=== PATIENT | female | born 1970 | race African-American/Black ===

== ENCOUNTER 2016-11-22 05:25 | Emergency (ER) | payer MEDICARE, OTHER ==
[~2016-11-22] VITALS: Ht 162.6 cm; Wt 72.7 kg
[~2016-11-22 05:25] MED LIST: ADV250 IH; ALBU8HFA4 IH; OMEP20 PO; QUET100T PO; RISP3 PO; VITAD1000 PO
[2016-11-22] MEDS ORDERED: TRIL4 PO (05:48)
[2016-11-22] MEDS ORDERED: MIRT15 PO (05:48)
[2016-11-22] MEDS ORDERED: CLON1 PO (05:48)
[2016-11-22] MEDS ORDERED: TRIH2TAB3 PO (05:48)
[2016-11-22 06:28] LABS: BASOPHILS % (AUTO) 0.1 % (0.0-2.0); EOSINOPHILS % (AUTO) 6.7 % (1.0-6.0); HEMATOCRIT 39.6 % (36-46); HEMOGLOBIN 12.5 g/dL (12.0-16.0); LYMPHOCYTES # (AUTO) 0.9 K/uL (1.0-4.8); LYMPHOCYTES % (AUTO) 13.4 % (22.0-44.0); MEAN CORPUSCULAR HGB CONC 31.7 G/dL (31.0-37.0); MEAN CORPUSCULAR VOLUME 88 fL (80-100); MONOCYTES # (AUTO) 0.3 K/uL (0.1-1.0); MONOCYTES % (AUTO) 3.8 % (2.0-9.0); NEUTROPHILS # (AUTO) 5.2 K/uL (1.8-7.7); PLATELET COUNT (AUTO) 345 K/uL (150-450); RED BLOOD CELL COUNT(AUTO) 4.49 MIL/uL (4.00-5.20); RED CELL DISTRIBUTION WIDTH 14.7 % (11.5-14.5); WHITE BLOOD COUNT (AUTO) 6.8 K/uL (4.5-11.0)
[2016-11-22 06:51] LABS: ANION GAP 8 mmol/L (8-16); CALCIUM, TOTAL 8.7 mg/dL (8.8-10.5); CARBON DIOXIDE 27 mmol/L (22-29); CHLORIDE 106 mmol/L (98-107); CREATININE 0.67 mg/dL (0.60-1.30); GLOMERULAR FILTR. RATE CALC > 60 mL/min (>60); POTASSIUM 3.8 mmol/L (3.5-5.1); SODIUM SERUM 141 mmol/L (136-145); UREA NITROGEN, BLOOD 4 mg/dL (7-18)
[2016-11-22 06:56] LABS: ALANINE AMINOTRANSFERASE 19 U/L (12-78); ALBUMIN 3.1 g/dL (3.4-5.0); ASPARTATE AMINOTRANSFERASE 15 U/L (15-37); BILIRUBIN,TOTAL 0.2 mg/dL (0.1-1.0); TOTAL PROTEIN, SERUM 7.2 g/dL (6.4-8.2)
[2016-11-22] MEDS ORDERED: HALOPERIDOL 5 MG TABLET PO ONE (09:00)
[2016-11-22] MEDS ORDERED: LORazepam 1 MG TABLET PO ONE (09:00)
[2016-11-22] MEDS ORDERED: DiphenhydrAMINE HCL 25 MG CAPSULE PO ONE (09:00)
[2016-11-22 09:47] VITALS: BP 98/63
== END 2016-11-22 10:23 | disposition home or self-care (01) ==
LOC: EMS 05:26
DX: F25.9 Schizoaffective disorder, unspecified (principal)
CPT/HCPCS: 36415; 80053; 80307; 85025; 99284; G0480

== ENCOUNTER 2018-03-10 21:57 | Emergency (ER) | payer MEDICARE, OTHER ==
[~2018-03-10] VITALS: Ht 165.1 cm; Wt 50.0 kg
[~2018-03-10 21:57] MED LIST changes: -ADV250 IH; -ALBU8HFA4 IH; +CLON1 PO; +MIRT15 PO; -OMEP20 PO; -QUET100T PO; -RISP3 PO; +TRIH2TAB3 PO; +TRIL4 PO; -VITAD1000 PO
[2018-03-10 22:31] VITALS: BP 108/71
[2018-03-10] MEDS ORDERED: SODIUM CHLORIDE 0.9% 1,000 ML IV ONE (23:00)
[2018-03-10 23:17] LABS: BASOPHILS % (AUTO) 2.5 % (0.0-2.0); EOSINOPHILS % (AUTO) 2.2 % (1.0-6.0); HEMATOCRIT 36.6 % (36-46); HEMOGLOBIN 12.5 g/dL (12.0-16.0); LYMPHOCYTES # (AUTO) 1.3 K/uL (1.0-4.8); LYMPHOCYTES % (AUTO) 27.5 % (22.0-44.0); MEAN CORPUSCULAR HEMOGLOBIN 30.5 pg (26.0-34.0); MEAN CORPUSCULAR HGB CONC 34.2 G/dL (31.0-37.0); MEAN CORPUSCULAR VOLUME 89 fL (80-100); MONOCYTES # (AUTO) 0.4 K/uL (0.1-1.0); MONOCYTES % (AUTO) 8.5 % (2.0-9.0); NEUTROPHILS # (AUTO) 2.8 K/uL (1.8-7.7); NEUTROPHILS % (AUTO) 59.3 % (40.0-70.0); PLATELET COUNT (AUTO) 281 K/uL (150-450); RED CELL DISTRIBUTION WIDTH 13.8 % (11.5-14.5)
[2018-03-10 23:31] LABS: ANION GAP 5 mmol/L (8-16); CALCIUM, TOTAL 8.6 mg/dL (8.8-10.5); CARBON DIOXIDE 28 mmol/L (22-29); CHLORIDE 107 mmol/L (98-107); CREATININE 0.74 mg/dL (0.60-1.30); GLOMERULAR FILTR. RATE CALC > 60 mL/min (>60); GLUCOSE,RANDOM 90 mg/dL (70-110); POTASSIUM 4.1 mmol/L (3.5-5.1); SODIUM SERUM 140 mmol/L (136-145); UREA NITROGEN, BLOOD 14 mg/dL (7-18)
[2018-03-10 23:37] LABS: ALANINE AMINOTRANSFERASE 31 U/L (12-78); ALBUMIN 3.3 g/dL (3.4-5.0); ALKALINE PHOSPHATASE 56 U/L (46-116); ASPARTATE AMINOTRANSFERASE 21 U/L (15-37); BILIRUBIN,TOTAL 0.3 mg/dL (0.1-1.0); TOTAL PROTEIN, SERUM 6.7 g/dL (6.4-8.2)
[2018-03-10 23:48] LABS: APPEARANCE,URINE CLOUDY (CLEAR); GLUCOSE, URINE (UA) NEGATIVE (NEGATIVE); KETONES,URINE TRACE mg/dL (NEGATIVE); LEUKOCYTE ESTERASE ,URINE NEGATIVE (NEGATIVE); NITRATE,URINE NEGATIVE (NEGATIVE); OCCULT BLOOD,URINE NEGATIVE (NEGATIVE); PH,URINE 5.5 (5.0-8.0); PROTEIN,URINE POS 1+ (NEGATIVE)
[2018-03-10 23:51] LABS: AMPHET/METH SCREEN,URINE NEGATIVE (NEGATIVE); BARBITURATE SCREEN, URINE NEGATIVE (NEGATIVE); BENZODIAZEPINES SCREEN,URINE NEGATIVE (NEGATIVE); BILIRUBIN,URINE PRELIM. POSITIVE (NEGATIVE); CANNABINOID SCREEN,URINE NEGATIVE (NEGATIVE); COCAINE SCREEN,URINE NEGATIVE (NEGATIVE); METHADONE SCREEN, URINE NEGATIVE (NEGATIVE); OPIATE SCREEN,URINE NEGATIVE (NEGATIVE); PHENCYCLIDINE SCREEN,URINE NEGATIVE (NEGATIVE)
== END 2018-03-11 00:50 | disposition home or self-care (01) ==
LOC: EMS 21:59
DX: R42 Dizziness and giddiness (principal); F20.9 Schizophrenia, unspecified; Z79.899 Other long term (current) drug therapy
CPT/HCPCS: 36415; 80053; 80307; 81003; 84484; 84703; 85025; 93005; 96360; 99285; J7030

== ENCOUNTER 2023-11-03 10:43 | Inpatient (IN) | payer MEDICARE, MEDICAID ==
[~2023-11-03] VITALS: Ht 157.5 cm; Wt 54.4 kg
[~2023-11-03 10:43] MED LIST changes: +CLON-595 PO; -CLON1 PO; +MIRT-89 PO; -MIRT15 PO; +PERP4TAB33 PO; -TRIL4 PO
[2023-11-03 20:06] VITALS: RESP 16
[2023-11-04] MEDS ORDERED: ACETAMINOPHEN 325 MG TABLET PO PRN (07:00)
[2023-11-04] MEDS ORDERED: MAG HYDROX/ALUMINUM HYD/SIMETH ES 30 ML SUSPENSION UDCUP PO PRN (07:00)
[2023-11-04] MEDS ORDERED: PETROLATUM,WHITE 28 GM JELLY TP PRN (07:00)
[2023-11-04] MEDS ORDERED: ALBUTEROL SULFATE HFA 90 MCG/PUFF 8 GM INHALER IH PRN (07:00)
[2023-11-04] MEDS ORDERED: ONDANSETRON HCL 4 MG TABLET PO PRN (07:00)
[2023-11-04] MEDS ORDERED: LOPERAMIDE HCL 2 MG CAPSULE PO PRN (07:00)
[2023-11-04] MEDS ORDERED: IBUPROFEN 400 MG TABLET PO PRN (07:00)
[2023-11-04] MEDS ORDERED: CloNIDine HCL 0.1 MG TABLET PO PRN (07:00)
[2023-11-04] MEDS ORDERED: DOCUSATE SODIUM 100 MG CAPSULE PO PRN (07:00)
[2023-11-04] MEDS ORDERED: GuaiFENesin/D-METHORPHAN [SUGAR-FREE] 200-20MG/10 ML SYRUP UDCUP PO PRN (07:00)
[2023-11-04] MEDS ORDERED: MAGNESIUM HYDROXIDE SUSPENSION 30 ML UDCUP PO PRN (07:00)
[2023-11-04] MEDS ORDERED: NICOTINE 14 MG/24 HOUR PATCH TD PRN (07:00)
[2023-11-04] MEDS ORDERED: PERPHENAZINE 4 MG TABLET PO SCH (09:30)
[2023-11-04] MEDS: TRIHEXYPHENIDYL HCL 2 MG TABLET PO SCH (09:30)
[2023-11-04] MEDS: PERPHENAZINE 8 MG TABLET PO SCH (09:35)
[2023-11-04 13:52] VITALS: BP 127/77; PULSE 80; TEMP 97.3; O2SAT 98
[2023-11-04] MEDS ORDERED: LORazepam 2 MG/ML VIAL ONE (16:42)
[2023-11-04] MEDS ORDERED: DiphenhydrAMINE HCL 50 MG/ML VIAL ONE (16:42)
[2023-11-04] MEDS: LORazepam 2 MG/ML VIAL IM ONE (16:52)
[2023-11-04] MEDS: DiphenhydrAMINE HCL 50 MG/ML VIAL IM ONE (16:52)
[2023-11-04] MEDS: HALOPERIDOL LACTATE 5 MG/ML VIAL IM ONE (16:52)
[2023-11-04 20:06] VITALS: BP 98/64; PULSE 72; RESP 16; TEMP 98.2; O2SAT 98
[2023-11-04] MEDS: MIRTAZAPINE 15 MG TABLET PO SCH (20:17)
[2023-11-05 11:05] VITALS: BP 103/63; PULSE 73; RESP 18; TEMP 96.4; O2SAT 92
[2023-11-05] MEDS: LORazepam 2 MG TABLET PO PRN (16:57)
[2023-11-05 20:17] VITALS: BP 115/75; PULSE 89; RESP 18; TEMP 97.9; O2SAT 98
[2023-11-06 08:07] VITALS: BP 116/75; PULSE 66; RESP 17; TEMP 97.2; O2SAT 97
[2023-11-06] MEDS: HALOPERIDOL 5 MG TABLET PO PRN (11:30)
[2023-11-06 20:16] VITALS: BP 101/61; PULSE 75; RESP 19; TEMP 97.1; O2SAT 98
[2023-11-07 08:00] VITALS: BP 103/68; PULSE 88; RESP 18; TEMP 98.2; O2SAT 96
[2023-11-07 20:22] VITALS: BP 108/63; PULSE 98; RESP 18; TEMP 98.2; O2SAT 97
[2023-11-07] MEDS: PERPHENAZINE 8 MG TABLET PO SCH (21:00)
[2023-11-08 08:10] VITALS: BP 107/66; PULSE 78; RESP 16; TEMP 98.2; O2SAT 97
[2023-11-08] MEDS: ZOLPIDEM TARTRATE 10 MG TABLET PO PRN (21:58)
[2023-11-08 22:34] VITALS: BP 114/73; PULSE 82; RESP 18; TEMP 97.9
[2023-11-09 08:19] VITALS: BP 102/61; PULSE 67; RESP 16; TEMP 96.8; O2SAT 99
[2023-11-09 20:07] VITALS: BP 112/56; PULSE 75; RESP 18; TEMP 98.6; O2SAT 98
[2023-11-10 08:27] VITALS: BP 102/60; PULSE 61; RESP 16; TEMP 97.9; O2SAT 97
[2023-11-10 20:23] VITALS: BP 100/67; PULSE 94; RESP 17; TEMP 98; O2SAT 98
[2023-11-11 08:15] VITALS: BP 117/72; PULSE 76; RESP 18; TEMP 98.9; O2SAT 97
[2023-11-11 08:23] LABS: APPEARANCE,URINE CLEAR (CLEAR); BILIRUBIN,URINE NEGATIVE (NEGATIVE); COLOR,URINE YELLOW (YELLOW); GLUCOSE, URINE (UA) NEGATIVE (NEGATIVE); KETONES,URINE NEGATIVE (NEGATIVE); LEUKOCYTE ESTERASE ,URINE NEGATIVE (NEGATIVE); NITRATE,URINE NEGATIVE (NEGATIVE); OCCULT BLOOD,URINE NEGATIVE (NEGATIVE); PH,URINE 8.5 (5.0-8.0); PROTEIN,URINE 30-70 mg/dL (NEGATIVE); SPECIFIC GRAVITIY, URINE 1.028 (1.003-1.030); UROBILINOGEN,URINE <=1.0 mg/dL (<=1.0)
[2023-11-11 08:47] LABS: PH,URINE DRUG SCREEN 7.5 (5.0-8.0)
[2023-11-11 08:57] LABS: ALCOHOL, URINE DRUG SCREEN NEGATIVE (NEGATIVE); AMPHET/METH SCREEN,URINE NEGATIVE (NEGATIVE); BARBITURATE SCREEN, URINE NEGATIVE (NEGATIVE); BENZODIAZEPINES SCREEN,URINE NEGATIVE (NEGATIVE); CANNABINOID SCREEN,URINE NEGATIVE (NEGATIVE); COCAINE SCREEN,URINE NEGATIVE (NEGATIVE); METHADONE SCREEN, URINE NEGATIVE (NEGATIVE); OPIATE SCREEN,URINE NEGATIVE (NEGATIVE); PHENCYCLIDINE SCREEN,URINE NEGATIVE (NEGATIVE)
[2023-11-11 20:10] VITALS: BP 108/58; PULSE 79; RESP 17; TEMP 97; O2SAT 100
[2023-11-12 08:32] VITALS: BP 103/60; PULSE 78; RESP 18; TEMP 97.8; O2SAT 99
[2023-11-12 20:08] VITALS: BP 100/60; PULSE 70; RESP 19; TEMP 98; O2SAT 98
[2023-11-13 08:35] VITALS: BP 109/63; PULSE 67; RESP 20; TEMP 96.9; O2SAT 100
[2023-11-13] MEDS ORDERED: PERPHENAZINE 4 MG TABLET PO SCH (13:00)
[2023-11-13] MEDS: PERPHENAZINE 8 MG TABLET PO SCH (13:26)
[2023-11-13 21:01] VITALS: BP 90/62; PULSE 71; RESP 20; TEMP 97.3
[2023-11-14 08:42] VITALS: BP 106/61; PULSE 78; RESP 16; TEMP 97.4; O2SAT 96
[2023-11-14] MEDS ORDERED: PERPHENAZINE 4 MG TABLET PO ONE (09:15)
[2023-11-14] MEDS: PERPHENAZINE 8 MG TABLET PO ONE (09:30)
[2023-11-14] MEDS: PERPHENAZINE 8 MG TABLET PO SCH (16:32)
[2023-11-14 20:10] VITALS: RESP 18
[2023-11-15 08:44] VITALS: BP 98/61; PULSE 74; RESP 16; TEMP 96.4; O2SAT 94
[2023-11-15 20:09] VITALS: BP 104/55; PULSE 68; RESP 19; TEMP 97.6; O2SAT 99
[2023-11-16 09:35] VITALS: BP 111/61; PULSE 75; RESP 16; TEMP 97; O2SAT 100
[2023-11-16 21:09] VITALS: BP 101/62; PULSE 61; RESP 16; TEMP 99.3; O2SAT 99
[2023-11-17 08:22] VITALS: BP 107/61; PULSE 90; RESP 16; TEMP 98.4; O2SAT 100
[2023-11-17 22:38] VITALS: BP 123/68; PULSE 91; RESP 18; TEMP 98; O2SAT 97
[2023-11-19 08:34] VITALS: BP 104/61; PULSE 111; RESP 16; TEMP 97.9; O2SAT 96
[2023-11-19 20:09] VITALS: BP 108/74; PULSE 95; RESP 19; TEMP 98.2; O2SAT 97
[2023-11-20 09:48] VITALS: BP 108/64; PULSE 85; RESP 20; TEMP 97.9; O2SAT 100
[2023-11-20 21:20] VITALS: RESP 18
[2023-11-21 08:35] VITALS: BP 101/70; PULSE 60; RESP 17; TEMP 98.3; O2SAT 96
[2023-11-21 20:35] VITALS: BP 101/60; PULSE 92; RESP 18; TEMP 97.2; O2SAT 99
[2023-11-22 08:26] VITALS: BP 110/65; PULSE 96; RESP 17; TEMP 97.9; O2SAT 97
[2023-11-22 20:29] VITALS: BP 105/66; PULSE 75; RESP 17; TEMP 96.8; O2SAT 97
[2023-11-23 08:28] VITALS: BP 113/68; PULSE 74; RESP 18; TEMP 96.7; O2SAT 96
[2023-11-23 22:49] VITALS: RESP 18
[2023-11-24 09:27] VITALS: BP 122/66; PULSE 102; RESP 16; TEMP 96.9; O2SAT 99
[2023-11-24 20:07] VITALS: BP 108/56; PULSE 85; RESP 19; TEMP 97.1; O2SAT 97
[2023-11-25 08:00] VITALS: RESP 18
[2023-11-25 21:06] VITALS: BP 117/62; PULSE 81; RESP 18; TEMP 97; O2SAT 98
[2023-11-26 08:07] VITALS: BP 116/60; PULSE 90; RESP 16; TEMP 98.1; O2SAT 98
[2023-11-26 23:50] VITALS: RESP 18
[2023-11-27 08:05] VITALS: BP 127/76; PULSE 85; RESP 16; TEMP 98.1; O2SAT 96
[2023-11-27 20:02] VITALS: BP 105/60; PULSE 76; RESP 16; TEMP 98.1; O2SAT 98
[2023-11-28 09:09] VITALS: BP 118/70; PULSE 88; RESP 17; TEMP 97.9; O2SAT 98
[2023-11-28 21:02] VITALS: BP 99/60; PULSE 87; RESP 18; TEMP 97.5; O2SAT 98
[2023-11-29 08:27] VITALS: BP 100/56; PULSE 72; RESP 16; TEMP 96.2; O2SAT 96
[2023-11-29 20:27] VITALS: BP 104/62; PULSE 81; RESP 18; TEMP 97.7; O2SAT 99
[2023-11-30 08:52] VITALS: BP 106/64; PULSE 93; RESP 16; TEMP 97.2; O2SAT 96
[2023-11-30] MEDS: PERPHENAZINE 8 MG TABLET PO SCH (17:18)
[2023-11-30 21:01] VITALS: RESP 18
[2023-12-01 08:38] VITALS: BP 98/60; PULSE 108; RESP 17; TEMP 97.6; O2SAT 97
[2023-12-01 20:04] VITALS: BP 100/65; PULSE 79; RESP 16; TEMP 98.1; O2SAT 97
[2023-12-01 23:54] VITALS: BP 98/60; PULSE 108; RESP 16; TEMP 97.6; O2SAT 97
[2023-12-02 08:51] VITALS: BP 109/70; PULSE 86; RESP 19; TEMP 97.6; O2SAT 99
[2023-12-02 20:05] VITALS: RESP 18
[2023-12-03 08:30] VITALS: BP 91/65; PULSE 82; RESP 18; TEMP 98.6; O2SAT 98
[2023-12-03 21:41] VITALS: BP 108/58; PULSE 83; RESP 16; TEMP 98; O2SAT 97
[2023-12-04 08:19] VITALS: BP 109/64; PULSE 81; RESP 16; TEMP 97.8; O2SAT 100
[2023-12-04 20:08] VITALS: BP 103/63; PULSE 89; RESP 18; TEMP 98.2; O2SAT 98
[2023-12-05 08:12] VITALS: BP 101/61; PULSE 85; RESP 17; TEMP 97.6; O2SAT 97
[2023-12-05 21:12] VITALS: BP 103/57; PULSE 83; RESP 18; TEMP 98.2; O2SAT 98
[2023-12-06 08:24] VITALS: BP 118/64; PULSE 91; RESP 16; TEMP 98.2; O2SAT 97
[2023-12-06 09:07] LABS: ANION GAP 6 mmol/L (8-16); CALCIUM, TOTAL 8.8 mg/dL (8.8-10.5); CARBON DIOXIDE 29 mmol/L (22-29); CHLORIDE 103 mmol/L (98-107); CREATININE 0.53 mg/dL (0.60-1.30); GLOMERULAR FILTR. RATE CALC > 60 mL/min (>60); GLUCOSE,RANDOM 128 mg/dL (70-110); POTASSIUM 4.1 mmol/L (3.5-5.1); SODIUM SERUM 138 mmol/L (136-145); UREA NITROGEN, BLOOD 14 mg/dL (7-18)
[2023-12-06 20:52] VITALS: BP 120/71; PULSE 86; RESP 18; TEMP 97.9; O2SAT 97
[2023-12-07 09:27] VITALS: BP 108/66; PULSE 81; RESP 16; TEMP 98.6; O2SAT 96
[2023-12-07 20:52] VITALS: BP 108/60; PULSE 99; RESP 17; TEMP 97.7; O2SAT 99
[2023-12-08 10:06] VITALS: BP 101/70; PULSE 85; RESP 17; TEMP 97.6; O2SAT 99
[2023-12-08 20:10] VITALS: BP 101/54; PULSE 80; RESP 18; TEMP 97.7; O2SAT 100
[2023-12-09 08:00] VITALS: BP 90/55; PULSE 85; RESP 18; TEMP 98.2; O2SAT 96
[2023-12-09] MEDS: TUBERCULIN, PURIFIED PROTEIN DERIVATIVE 5 TU/0.1 ML SYRINGE ID ONE ×2 (08:36→12:13)
[2023-12-09 20:05] VITALS: RESP 16
[2023-12-10 08:05] VITALS: RESP 16
[2023-12-10 20:06] VITALS: RESP 16
[2023-12-11 08:48] VITALS: BP 116/74; PULSE 87; RESP 18; TEMP 97.2
[2023-12-12 03:08] VITALS: RESP 17
[2023-12-12 14:06] VITALS: RESP 18
[2023-12-12 20:08] VITALS: BP 112/63; PULSE 98; RESP 18; TEMP 97.1; O2SAT 97
[2023-12-13 08:28] VITALS: BP 116/68; PULSE 94; RESP 17; TEMP 97.4; O2SAT 98
[2023-12-13 20:25] VITALS: BP 112/71; PULSE 80; RESP 18; TEMP 98.2; O2SAT 100
[2023-12-14 08:19] VITALS: BP 104/69; PULSE 68; RESP 19; TEMP 97.1; O2SAT 98
[2023-12-14 21:35] VITALS: BP 105/68; PULSE 89; RESP 16; TEMP 97.8; O2SAT 100
[2023-12-15 08:38] VITALS: BP 117/68; PULSE 81; RESP 17; TEMP 98.1; O2SAT 96
[2023-12-15 20:27] VITALS: BP 109/66; PULSE 68; RESP 16; TEMP 97.5; O2SAT 100
[2023-12-15] MEDS ORDERED: ZOLPIDEM TARTRATE 10 MG TABLET PO PRN (21:00)
[2023-12-16 08:38] VITALS: BP 129/76; PULSE 72; RESP 18; TEMP 97.8; O2SAT 98
[2023-12-16 08:39] LABS: ANION GAP 5 mmol/L (8-16); CALCIUM, TOTAL 9.3 mg/dL (8.8-10.5); CARBON DIOXIDE 31 mmol/L (22-29); CHLORIDE 103 mmol/L (98-107); CREATININE 0.57 mg/dL (0.60-1.30); GLOMERULAR FILTR. RATE CALC > 60 mL/min (>60); GLUCOSE,RANDOM 105 mg/dL (70-110); SODIUM SERUM 139 mmol/L (136-145); UREA NITROGEN, BLOOD 11 mg/dL (7-18)
[2023-12-16 20:51] VITALS: BP 102/70; PULSE 65; RESP 17; TEMP 98.1; O2SAT 97
[2023-12-17 08:22] VITALS: BP 119/73; PULSE 83; RESP 16; TEMP 97.4; O2SAT 97
[2023-12-17 20:15] VITALS: BP 134/73; PULSE 83; RESP 18; TEMP 97.5; O2SAT 100
[2023-12-18] MEDS: LORazepam 2 MG TABLET PO PRN (05:15)
[2023-12-18 08:44] VITALS: BP 104/64; PULSE 85; RESP 16; TEMP 97.2; O2SAT 99
[2023-12-18 20:12] VITALS: BP 127/65; PULSE 89; RESP 20; TEMP 97.8; O2SAT 100
[2023-12-19 08:17] VITALS: BP 115/67; PULSE 78; RESP 14; TEMP 97.5; O2SAT 97
[2023-12-19 20:15] VITALS: BP 106/72; PULSE 82; RESP 20; TEMP 98; O2SAT 94
[2023-12-20 00:09] VITALS: BP 127/74; PULSE 79; RESP 18; TEMP 98.1; O2SAT 100
[2023-12-20 08:21] VITALS: BP 113/68; PULSE 77; RESP 16; TEMP 97.4; O2SAT 99
[2023-12-20 21:25] VITALS: BP 119/76; PULSE 81; RESP 18; TEMP 97.6; O2SAT 96
[2023-12-21 06:45] VITALS: BP 120/89; PULSE 106; RESP 18; O2SAT 98
[2023-12-21 08:37] VITALS: BP 128/71; PULSE 85; RESP 17; TEMP 97.5; O2SAT 98
[2023-12-22 09:41] VITALS: BP 122/70; PULSE 79; RESP 18; TEMP 97.2; O2SAT 98
[2023-12-22 21:05] VITALS: BP 90/60; PULSE 72; RESP 16; TEMP 98.7; O2SAT 97
[2023-12-23 08:32] VITALS: BP 118/75; PULSE 95; RESP 17; TEMP 97.7; O2SAT 97
[2023-12-23 20:26] VITALS: BP 120/67; PULSE 85; RESP 18; TEMP 97.7; O2SAT 98
[2023-12-24 11:00] VITALS: BP 125/63; PULSE 79; RESP 18; TEMP 96.6; O2SAT 99
[2023-12-24 23:06] VITALS: BP 128/76; PULSE 84; RESP 18; TEMP 97.6; O2SAT 99
[2023-12-25 10:52] VITALS: BP 122/69; PULSE 91; RESP 18; TEMP 98.4; O2SAT 98
[2023-12-25 21:20] VITALS: RESP 17
[2023-12-26 08:57] VITALS: BP 130/64; PULSE 78; RESP 16; TEMP 97.6; O2SAT 97
[2023-12-26 20:51] VITALS: BP 102/66; PULSE 81; RESP 18; TEMP 98; O2SAT 99
[2023-12-27 20:17] VITALS: BP 134/74; PULSE 98; TEMP 97.9; O2SAT 97
[2023-12-28 08:12] VITALS: BP 124/62; PULSE 84; RESP 16; TEMP 96.9; O2SAT 96
[2023-12-28 23:30] VITALS: BP 119/63; PULSE 84; RESP 16; TEMP 97.6; O2SAT 98
[2023-12-29 08:07] VITALS: BP 124/66; PULSE 77; RESP 16; TEMP 97.9; O2SAT 97
[2023-12-29 20:08] VITALS: BP 118/67; PULSE 85; RESP 18; TEMP 97.8; O2SAT 97
[2023-12-30 08:28] VITALS: BP 104/71; PULSE 81; RESP 18; TEMP 97.7; O2SAT 98
[2023-12-30 20:05] VITALS: BP 111/60; PULSE 84; RESP 18; TEMP 97.9
[2023-12-31 09:00] VITALS: BP 100/55; PULSE 61; RESP 18; TEMP 97.3; O2SAT 99
[2023-12-31 20:41] VITALS: BP 129/59; PULSE 98; RESP 19; TEMP 97.4; O2SAT 98
[2024-01-01 09:24] VITALS: BP 136/80; PULSE 80; RESP 18; TEMP 97.6; O2SAT 100
[2024-01-01 21:46] VITALS: BP 109/67; PULSE 77; RESP 18; TEMP 97.6; O2SAT 99
[2024-01-02 08:44] VITALS: BP 108/66; PULSE 76; RESP 17; TEMP 98; O2SAT 96
[2024-01-02 20:23] VITALS: BP 116/66; PULSE 85; RESP 18; TEMP 98.1; O2SAT 100
[2024-01-03 08:38] VITALS: BP 119/71; PULSE 67; RESP 17; TEMP 97.1; O2SAT 97
[2024-01-03 20:18] VITALS: BP 106/69; PULSE 80; RESP 16; TEMP 97.8; O2SAT 96
[2024-01-04 13:16] VITALS: BP 108/64; PULSE 92; RESP 18; TEMP 97.4; O2SAT 99
[2024-01-04 22:14] VITALS: BP 122/66; PULSE 88; TEMP 98.5; O2SAT 98
[2024-01-05 09:02] VITALS: BP 109/64; PULSE 78; RESP 17; TEMP 97.3; O2SAT 97
[2024-01-05 20:16] VITALS: BP 131/82; PULSE 107; TEMP 98; O2SAT 98
[2024-01-06 08:24] VITALS: BP 119/70; PULSE 98; RESP 17; TEMP 97.7; O2SAT 100
[2024-01-07 08:07] VITALS: BP 125/85; PULSE 68; RESP 15; TEMP 98
[2024-01-07 20:43] VITALS: BP 120/73; PULSE 85; RESP 17; TEMP 97.7; O2SAT 96
[2024-01-08 16:16] VITALS: BP 100/68; PULSE 85; RESP 18; TEMP 97.2; O2SAT 98
[2024-01-08 20:36] VITALS: BP 107/62; PULSE 71; RESP 17; TEMP 98.2; O2SAT 98
[2024-01-09 13:29] VITALS: BP 124/67; PULSE 91; RESP 18; TEMP 98; O2SAT 96
[2024-01-09 20:36] VITALS: BP 100/55; PULSE 68; RESP 16; TEMP 97.9; O2SAT 98
[2024-01-10 08:13] VITALS: BP 126/69; PULSE 93; RESP 19; TEMP 97.9; O2SAT 99
[2024-01-11 08:30] VITALS: BP 119/66; PULSE 60; RESP 17; TEMP 97.6; O2SAT 98
[2024-01-12 08:03] VITALS: BP 118/66; PULSE 87; RESP 15; TEMP 97.3; O2SAT 100
[2024-01-13 08:24] VITALS: BP 132/69; PULSE 84; RESP 17; TEMP 96.5; O2SAT 95
[2024-01-13 20:15] VITALS: BP 126/73; PULSE 70; RESP 18; TEMP 97.6
[2024-01-14 08:06] VITALS: BP 130/76; PULSE 83; RESP 17; TEMP 97.1; O2SAT 100
[2024-01-14 20:06] VITALS: BP 108/63; PULSE 98; RESP 18; TEMP 97.6; O2SAT 96
[2024-01-15 12:50] VITALS: BP 111/66; RESP 18; TEMP 98; O2SAT 97
[2024-01-15 20:29] VITALS: BP 121/61; PULSE 98; RESP 18; TEMP 97.1; O2SAT 100
[2024-01-16 08:13] VITALS: BP 122/76; PULSE 84; RESP 18; TEMP 96.7; O2SAT 95
[2024-01-16] MEDS ORDERED: TRIL8 PO (13:41)
[2024-01-16] MEDS ORDERED: HALO5TAB23 PO (13:41)
[2024-01-16] MEDS ORDERED: TRIH2TAB3 PO (13:41)
[2024-01-16] MEDS ORDERED: MIRT-89 PO (13:41)
[2024-01-16 21:23] VITALS: BP 123/64; PULSE 81; RESP 18; TEMP 97.4; O2SAT 99
[2024-01-17 00:45] LABS: GLUCOMETER DEV NAME(LOC) POC.BV; POC SARS-COV2 AG, FIA NEGATIVE (NEGATIVE)
[2024-01-17 08:48] VITALS: BP 138/75; PULSE 80; RESP 18; TEMP 98.2; O2SAT 99
[2024-01-17 21:16] VITALS: BP 133/79; PULSE 62; RESP 18; TEMP 98; O2SAT 98
[2024-01-18 08:24] VITALS: BP 115/68; PULSE 85; RESP 18; TEMP 98; O2SAT 100
[2024-01-18 20:30] VITALS: BP 124/73; PULSE 79; RESP 18; TEMP 97.6; O2SAT 99
[2024-01-19 08:18] VITALS: BP 130/74; PULSE 74; RESP 17; TEMP 97.1; O2SAT 100
[2024-01-19 20:30] VITALS: BP 112/63; PULSE 87; RESP 18; TEMP 97.7; O2SAT 97
[2024-01-20 01:00] VITALS: BP 126/75; PULSE 80; RESP 17; TEMP 97.8; O2SAT 100
[2024-01-20 08:07] VITALS: BP 114/73; PULSE 91; RESP 17; TEMP 97.1; O2SAT 100
[2024-01-20 20:07] VITALS: BP 106/72; PULSE 72; RESP 16; TEMP 97.3; O2SAT 98
[2024-01-21 08:33] VITALS: BP 109/58; PULSE 81; RESP 17; TEMP 97.4; O2SAT 95
[2024-01-21 20:10] VITALS: BP 114/70; PULSE 91; RESP 18; TEMP 98; O2SAT 98
[2024-01-22 08:02] VITALS: BP 129/89; PULSE 90; RESP 16; TEMP 97.6; O2SAT 100
[2024-01-22 20:17] VITALS: BP 106/61; PULSE 101; RESP 16; TEMP 97.6
[2024-01-22 20:18] VITALS: BP 106/61; PULSE 101; RESP 16; TEMP 97.6; O2SAT 99
[2024-01-23 08:57] VITALS: BP 120/64; PULSE 94; RESP 17; TEMP 97.3; O2SAT 100
[2024-01-23 20:07] VITALS: BP 127/72; PULSE 84; RESP 18; TEMP 97; O2SAT 100
[2024-01-24 09:46] VITALS: BP_SYST 108; BP_SYST 127; BP_DIAS 70; BP_DIAS 72; PULSE 84; RESP 18; TEMP 97; O2SAT 100
[2024-01-24 14:01] LABS: GLUCOMETER DEV NAME(LOC) POC.BV; POC SARS-COV2 AG, FIA NEGATIVE (NEGATIVE)
[2024-01-25 08:13] VITALS: BP 126/77; PULSE 91; RESP 17; TEMP 97.6; O2SAT 97
== END 2024-01-25 15:50 | DRG 885 ==
LOC: B2X 14:10
PROVIDERS: ADMIT Psychiatry & Neurology Psychiatry; ATTEND Psychiatry & Neurology Psychiatry
PROC: GZHZZZZ Group Psychotherapy (ICD-10-PCS; principal; 2023-11-05)
PROC: GZ52ZZZ Individual Psychotherapy, Cognitive (ICD-10-PCS; 2023-11-05)
DX: F25.0 Schizoaffective disorder, bipolar type (principal); J44.9 Chronic obstructive pulmonary disease, unspecified; E78.5 Hyperlipidemia, unspecified; D64.9 Anemia, unspecified; F41.9 Anxiety disorder, unspecified; Z20.822 Contact with and (suspected) exposure to COVID-19; Z79.899 Other long term (current) drug therapy; Z91.148 Patient's other noncompliance with medication regimen for other reason
CPT/HCPCS: 71046; 80048; 80307; 81003; 87081; 93005; J1200; J1630; J2060; 36415-L1; 36415-TC